=== PATIENT | male | born 1990 | race Caucasian/White ===

== ENCOUNTER 2021-08-28 22:44 | Inpatient (IN) ==
[2021-08-29] MEDS ORDERED: Naloxone 0.4 MG/ML INJ IVP PRN (02:41)
[2021-08-29] MEDS ORDERED: Ondansetron 4 MG/2 ML VIAL IVP PRN (02:41)
[2021-08-29] MEDS ORDERED: Melatonin 3 MG TABLET PO PRN (02:41)
[2021-08-29] MEDS ORDERED: *HR* Heparin 5,000 UNIT/ML VIAL IVP PRN (02:55)
[2021-08-29] MEDS ORDERED: Heparin 25,000UNIT/250ML 1/2NS 25,000 UNIT/250 ML IV.SOLN IVC SCH (03:00)
[2021-08-29] MEDS ORDERED: Heparin 25,000 UNIT/250 ML 25,000 UNIT/250 ML IV.SOLN IVC SCH ×2 (03:30→23:45)
[2021-08-29 06:19] LABS: Basophils % 0.3 %; Hemoglobin 13.5 g/dL (12.9-16.9); Immature Granulocytes % 0.5 % (0-4); Lymphocytes # 1.9 K/mcL (0.6-4.6); Lymphocytes % 16.1 %; Mean Corpuscular HGB Conc 33.8 g/dL (31.6-35.5); Mean Corpuscular Hemoglobin 29.2 pg (28.0-33.3); Mean Corpuscular Volume 86.4 fL (83.0-100.0); Mean Platelet Volume 10.2 fL (9.4-12.4); Monocytes # 1.1 K/mcL (0.0-1.3); Monocytes % 9.7 %; Neutrophils # 8.6 K/mcL (1.6-8.9); Platelet Count 635 K/mcL (140-400); Red Blood Count 4.63 M/mcL (4.19-5.50); Segmented Neutrophils % 73.4 %; White Blood Count 11.7 K/mcL (4.3-11.1)
[2021-08-29 06:20] LABS: INR 1.4; Prothrombin Time 15.4 Seconds (9.4-12.1)
[2021-08-29 06:22] LABS: Activated Partial Thrombo Time 37.6 Seconds (26.0-36.0)
[2021-08-29] MEDS: Acetaminophen 325 MG TABLET PO PRN ×2 (06:32→21:21)
[2021-08-29] MEDS: *HR* Heparin 5,000 UNIT/ML VIAL IVP PRN (06:37)
[2021-08-29 06:43] LABS: BUN/Creatinine Ratio 11 (6-26); Blood Urea Nitrogen 9 mg/dL (6-20); Calcium 8.3 mg/dL (8.6-10.3); Carbon Dioxide 24 mEq/L (23-29); Chloride 103 mEq/L (98-107); Glucose 95 mg/dL (70-105); Osmolality,Calculated 278 (280-300); Potassium 3.4 mEq/L (3.5-5.1); Sodium 135 mEq/L (136-145); Troponin I < 0.03 ng/mL (< 0.04); eGFR For African Americans > 60 (> 60); eGFR For Non-African Americans > 60 (> 60)
[2021-08-29] MEDS ORDERED: Perflutren Lipid Microsphere 1.3 ML in 0.9 % Sodium Chloride 8.7 ML IVP PRN ×2 (07:25→10:28)
[2021-08-29] MEDS ORDERED: Ketorolac 30 MG/ML VIAL IVP ONE (07:33)
[2021-08-29] MEDS ORDERED: Benzonatate 100 MG CAPSULE PO PRN (10:29)
[2021-08-29] MEDS ORDERED: NON-FORMULARY MEDICATION 1 EACH EACH (Epinephrine 0.3 MG/0.3 ML Auto.Injct) IM PRN (10:29)
[2021-08-29] MEDS ORDERED: Ibuprofen 600 MG TABLET PO PRN ×2 (10:31→17:56)
[2021-08-29 21:09] LABS: Bilirubin,Urine Negative (Negative); Blood,Urine Negative (Negative); Clarity,Urine Clear (Clear); Color,Urine Colorless (Yellow); Glucose,Urine (UA) Normal (Normal); Ketones,Urine Negative (Negative); Leukocyte Esterase,Urine Negative (Negative); Nitrite,Urine Negative (Negative); PH,Urine 6.5 pH Units (5.0-8.0); Protein,Urine Negative (Neg-Trace); Specific Gravity,Urine 1.005 (1.010-1.025); Urobilinogen,Urine Normal (Normal)
[2021-08-30 03:26] LABS: Hematocrit 40.2 % (37.5-50.1); Hemoglobin 13.7 g/dL (12.9-16.9); Mean Corpuscular HGB Conc 34.1 g/dL (31.6-35.5); Mean Corpuscular Hemoglobin 29.7 pg (28.0-33.3); Mean Platelet Volume 9.9 fL (9.4-12.4); Platelet Count 725 K/mcL (140-400); Red Blood Count 4.62 M/mcL (4.19-5.50); Red Cell Distribution Width 12.1 % (11.5-14.5)
[2021-08-30 03:47] LABS: BUN/Creatinine Ratio 9 (6-26); Blood Urea Nitrogen 7 mg/dL (6-20); Calcium 8.5 mg/dL (8.6-10.3); Carbon Dioxide 24 mEq/L (23-29); Chloride 103 mEq/L (98-107); Glucose 100 mg/dL (70-105); Osmolality,Calculated 280 (280-300); Potassium 3.8 mEq/L (3.5-5.1); Sodium 136 mEq/L (136-145); eGFR For African Americans > 60 (> 60); eGFR For Non-African Americans > 60 (> 60)
[2021-08-30] MEDS: *HR* Heparin 5,000 UNIT/ML VIAL IVP PRN (04:20)
[2021-08-30] MEDS ORDERED: Ketorolac 30 MG/ML VIAL IVP ONE (04:24)
[2021-08-30] MEDS: Loratadine 10 MG TABLET PO SCH (08:48)
[2021-08-30 10:24] LABS: Basophils % 0.3 %; Eosinophils % 0.1 %; Immature Granulocytes % 0.8 % (0-4); Lymphocytes # 1.9 K/mcL (0.6-4.6); Lymphocytes % 12.3 %; Monocytes # 1.7 K/mcL (0.0-1.3); Monocytes % 10.7 %; Neutrophils # 11.7 K/mcL (1.6-8.9); Segmented Neutrophils % 75.8 %
[2021-08-30 10:28] LABS: Albumin 3.7 g/dL (3.5-5.7); Bilirubin,Direct 0.2 mg/dL (0.0-0.2); Bilirubin,Indirect 0.5 mg/dL (0.0-1.0); Bilirubin,Total 0.7 mg/dL (0.3-1.0); Globulin 3.6 g/dL (2.4-3.5); Total Protein 7.3 g/dL (6.4-8.9)
[2021-08-30] MEDS ORDERED: *HR* OxyCODONE/APAP 5/325 TABLET PO STA (11:53)
[2021-08-30] MEDS: *HR* Rivaroxaban 15 MG TABLET PO SCH ×2 (12:23→21:09)
[2021-08-30] MEDS ORDERED: Acetaminophen 325 MG TABLET PO PRN (15:27)
[2021-08-31] MEDS: Acetaminophen 325 MG TABLET PO PRN (02:42)
[2021-08-31 06:47] VITALS: BP 116/71; PULSE 92; TEMP 97.1; O2SAT 93
[2021-08-31] MEDS: Loratadine 10 MG TABLET PO SCH (08:11)
[2021-08-31] MEDS: *HR* Rivaroxaban 15 MG TABLET PO SCH (08:11)
[2021-08-31] MEDS ORDERED: *HR* OxyCODONE/APAP 5/325 TABLET PO PRN (10:44)
[2021-09-01 00:02] LABS: Iron < 10 mcg/dL (65-175)
[2021-09-02 13:15] LABS: Transferrin 117 mg/dL (200-400)
== END 2021-08-31 18:38 | disposition home or self-care (01) | DRG 176 ==
LOC: 2NENU → SUATTDRO 08-29 01:47
PROVIDERS: ADMIT Internal Medicine; ATTEND Student in an Organized Health Care Education/Training Program